=== PATIENT | female | born 1985 | race Caucasian/White ===

== ENCOUNTER 2020-09-28 23:05 | Observation (INO) | payer OTHER ==
[~2020-09-28] VITALS: Ht 154.9 cm; Wt 77.6 kg
== END 2020-09-30 00:35 | disposition home or self-care (01) ==
LOC: SPU 23:05 → UNDOADMOB 23:05 → SPU 09-29 23:05
PROVIDERS: ADMIT Specialist; ATTEND Specialist
DX: O36.8130 Decreased fetal movements, third trimester, not applicable or unspecified (principal); O62.9 Abnormality of forces of labor, unspecified; Z3A.35 35 weeks gestation of pregnancy
CPT/HCPCS: 81002; G0378

== ENCOUNTER 2020-10-02 17:45 | Observation (INO) | payer OTHER ==
[~2020-10-02] VITALS: Ht 154.9 cm; Wt 77.6 kg
[2020-10-02] MEDS ORDERED: TERBUTALINE SULFATE 1 MG/ML VIAL SUBCUT ONE (19:00)
[2020-10-02] MEDS ORDERED: TERBUTALINE SULFATE 1 MG/ML VIAL ONE (19:02)
[2020-10-02] MEDS ORDERED: TERBUTALINE SULFATE 1 MG/ML VIAL SUBCUT PRN (21:30)
== END 2020-10-03 00:41 | disposition home or self-care (01) ==
LOC: SPU 17:45
PROVIDERS: ADMIT Specialist; ATTEND Specialist
DX: O62.9 Abnormality of forces of labor, unspecified (principal); Z3A.35 35 weeks gestation of pregnancy
CPT/HCPCS: 81002; 96372; G0378; J3105; 59899

== ENCOUNTER 2020-10-10 21:18 | Inpatient (IN) | payer OTHER, SELFPAY ==
[~2020-10-10] VITALS: Ht 154.9 cm; Wt 77.6 kg
[2020-10-10] MEDS: LR 1,000 ML IV SCH (20:50)
[~2020-10-10 21:18] MED LIST: BUPIVACAINE /PF 0.75% 10 ML VIAL INJ ONE; LR 1,000 ML IV.SOLN IV ONE; MORPHINE SULFATE 10MG/10ML PF AMP EP ONE; NS IRRIG SOLN 1000 ML IR ONE
[2020-10-10] MEDS: TERBUTALINE SULFATE 1 MG/ML VIAL SUBCUT PRN (22:50)
[2020-10-10 23:18] LABS: BILIRUBIN,URINE NEGATIVE (NEGATIVE); BLOOD, URINE NEGATIVE (NEGATIVE); CLARITY/URINE CLEAR (CLEAR); COLOR,URINE YELLOW (YELLOW); GLUCOSE,URINE NEGATIVE (NEGATIVE); KETONES,URINE NEGATIVE (NEGATIVE); LEUKOCYTE ESTERASE ,URINE NEGATIVE (NEGATIVE); NITRITE, URINE NEGATIVE (NEGATIVE); PROTEIN URINE NEGATIVE (NEGATIVE); UROBILINOGEN,URINE 0.2 (0.2-1.0)
[2020-10-10 23:28] LABS: BASOPHILS % (AUTO) 0.1 % (0.0-2.0); EOSINOPHILS # (AUTO) 0.1 K/uL (0.0-0.4); EOSINOPHILS % (AUTO) 0.6 % (0.0-4.0); HEMOGLOBIN 11.7 g/dL (12.0-16.0); LYMPHOCYTES # (AUTO) 2.6 K/uL (1.0-5.5); LYMPHOCYTES % (AUTO) 21.9 % (20.5-51.5); MEAN CORPUSCULAR HEMOGLOBIN 28 pg (27-31); MEAN CORPUSCULAR HGB CONC 34 % (32-36); MEAN CORPUSCULAR VOLUME 84 fL (79.0-98.0); MONOCYTES % (AUTO) 8.5 % (1.7-9.3); NEUTROPHILS # (AUTO) 8.3 K/uL (1.8-7.7); NEUTROPHILS % (AUTO) 68.9 % (40.0-70.0); PLATELET COUNT (AUTO) 194 K/uL (130-430); RED BLOOD CELL COUNT(AUTO) 4.15 MIL/uL (4.2-6.2); RED CELL DISTRIBUTION WIDTH 13.8 % (9.0-15.0)
[2020-10-11] MEDS: TERBUTALINE SULFATE 1 MG/ML VIAL SUBCUT PRN (00:06)
[2020-10-11] MEDS: LR 1,000 ML IV SCH (09:35)
[2020-10-11] MEDS ORDERED: TERBUTALINE SULFATE 1 MG/ML VIAL ONE (10:56)
[2020-10-11] MEDS ORDERED: CEFAZOLIN 2 GM IVPB PREMIX 50 ML IV ONE (12:00)
[2020-10-11] MEDS ORDERED: AMPICILLIN SODIUM 2 GM in NS 100 ML IV ONE (12:00)
[2020-10-11 12:19] LABS: BILIRUBIN,URINE NEGATIVE (NEGATIVE); BLOOD, URINE NEGATIVE (NEGATIVE); CLARITY/URINE CLEAR (CLEAR); COLOR,URINE YELLOW (YELLOW); GLUCOSE,URINE NEGATIVE (NEGATIVE); KETONES,URINE TRACE (NEGATIVE); LEUKOCYTE ESTERASE ,URINE NEGATIVE (NEGATIVE); NITRITE, URINE NEGATIVE (NEGATIVE); PROTEIN URINE NEGATIVE (NEGATIVE); UROBILINOGEN,URINE 0.2 (0.2-1.0)
[2020-10-11] MEDS ORDERED: BISACODYL 10 MG/SUPPOSITORY RC PRN (14:15)
[2020-10-11] MEDS ORDERED: LR 1,000 ML IV SCH (14:15)
[2020-10-11] MEDS ORDERED: ANUSOL 1 EA SUPP.RECT (PREPARATION H) RC PRN (14:15)
[2020-10-11] MEDS ORDERED: NALOXONE HCL 0.4 MG/ML AMP (NARCAN) IVP PRN ×3 (14:15→14:30)
[2020-10-11] MEDS ORDERED: OXYCODONE/ACETAMINOPHEN *10*mg/325 mg TABLET PO PRN (14:15)
[2020-10-11] MEDS ORDERED: LANOLIN 7 GM OINT. TP PRN (14:15)
[2020-10-11] MEDS ORDERED: SENNOSIDES/DOCUSATE SODIUM 1 TAB TABLET(SENOKOT-S) PO PRN (14:15)
[2020-10-11] MEDS ORDERED: MEASLES,MUMPS&RUBELLA VACC/PF 12500 UNIT/0.5 ML VIAL SUBQ PRN (14:15)
[2020-10-11] MEDS ORDERED: TEMAZEPAM 15 MG CAPSULE PO PRN (14:15)
[2020-10-11] MEDS ORDERED: DIPH-TET-PERTUS Vaccine 0.5 ML VIAL (ADACEL) I.M. PRN (14:15)
[2020-10-11] MEDS ORDERED: RHO(D) IMMUNE GLOBULIN/MALTOSE 1500 UNITS/1.3 ML (WINHRO) IM PRN (14:15)
[2020-10-11] MEDS ORDERED: HYDROcodone/ACETAMIN 5-325 MG TAB (NORCO/ VICODIN) PO PRN (14:15)
[2020-10-11] MEDS ORDERED: fentaNYL CITRATE/PF 100 MCG/2 ML AMP IVP PRN ×2 (14:30)
[2020-10-11] MEDS ORDERED: KETOROLAC TROMETHAMINE 60 MG/2 ML VIAL IM PRN (14:30)
[2020-10-11] MEDS ORDERED: DIPHENHYDRAMINE INJ 50 MG/ML VIAL IVP PRN (14:30)
[2020-10-11] MEDS ORDERED: NALBUPHINE HCL 10 MG/ML AMP IVP PRN (14:30)
[2020-10-11] MEDS ORDERED: ONDANSETRON HCL 4 MG/2 ML VIAL IVP PRN (14:30)
[2020-10-11] MEDS ORDERED: MORPHINE SULFATE 10MG/10ML PF AMP SP SCH (14:30)
[2020-10-11 15:23] VITALS: BP_SYST 122
[2020-10-11] MEDS: CEFAZOLIN 1 GM IVPB PREMIX 50 ML IV SCH (18:12)
[2020-10-12] MEDS: KETOROLAC TROMETHAMINE 30 MG VIAL IVP SCH ×2 (00:07→06:00)
[2020-10-12] MEDS: CEFAZOLIN 1 GM IVPB PREMIX 50 ML IV SCH ×2 (00:09→06:15)
[2020-10-12 06:52] LABS: EOSINOPHILS % (AUTO) 0.1 % (0.0-4.0); HEMATOCRIT 33.4 % (36-48); HEMOGLOBIN 10.9 g/dL (12.0-16.0); LYMPHOCYTES # (AUTO) 1.7 K/uL (1.0-5.5); LYMPHOCYTES % (AUTO) 11.9 % (20.5-51.5); MEAN CORPUSCULAR HEMOGLOBIN 28 pg (27-31); MEAN CORPUSCULAR HGB CONC 33 % (32-36); MEAN CORPUSCULAR VOLUME 85 fL (79.0-98.0); MONOCYTES % (AUTO) 7.5 % (1.7-9.3); NEUTROPHILS # (AUTO) 11.3 K/uL (1.8-7.7); NEUTROPHILS % (AUTO) 80.5 % (40.0-70.0); PLATELET COUNT (AUTO) 213 K/uL (130-430); RED BLOOD CELL COUNT(AUTO) 3.95 MIL/uL (4.2-6.2)
[2020-10-12] MEDS: OXYTOCIN/0.9 % SODIUM CHLORIDE 1,000 ML IV SCH ×2 (08:16)
[2020-10-12] MEDS ORDERED: IBUPROFEN 600 MG TABLET PO ONE (12:00)
[2020-10-12] MEDS: DOCUSATE SODIUM 100 MG CAPSULE PO PRN ×2 (12:35→21:29)
[2020-10-12] MEDS: OXYCODONE/ACETAMINOPHEN 5-325 TABLET PO PRN ×2 (14:29→21:30)
[2020-10-12] MEDS: IBUPROFEN 600 MG TABLET PO SCH ×2 (17:43→23:49)
[2020-10-12] MEDS ORDERED: IBUPROFEN 600 MG TABLET PO SCH (18:00)
[2020-10-12] MEDS: SIMETHICONE 80 MG TAB.CHEW PO PRN (21:29)
[2020-10-13] MEDS: OXYCODONE/ACETAMINOPHEN 5-325 TABLET PO PRN ×2 (03:03→12:23)
[2020-10-13] MEDS: SIMETHICONE 80 MG TAB.CHEW PO PRN (03:04)
[2020-10-13] MEDS: IBUPROFEN 600 MG TABLET PO SCH ×2 (06:08→12:23)
== END 2020-10-13 15:10 | disposition home or self-care (01) | DRG 788 ==
LOC: OBSVTOIN 21:18 → SPU 21:18
PROVIDERS: ADMIT Specialist; ATTEND Specialist
PROC: 10D00Z1 Extraction of Products of Conception, Low, Open Approach (ICD-10-PCS; principal; 2020-10-11 13:30)
DX: O34.211 Maternal care for low transverse scar from previous cesarean delivery (principal); O99.892 Other specified diseases and conditions complicating childbirth; N73.6 Female pelvic peritoneal adhesions (postinfective); Z20.822 Contact with and (suspected) exposure to COVID-19; Z3A.36 36 weeks gestation of pregnancy; Z37.0 Single live birth
CPT/HCPCS: 36415; 81003; 85025; 86592; 86886; 86900; 86901; 90715; J0290; J0690; J1885; J2274; J2590; J3105; J3490; J7120